=== PATIENT | female | born 1990 | race African-American/Black ===

== ENCOUNTER → 2020-08-14 | Day surgery (SDC) | payer OTHER ==
[~2020-08-14] VITALS: Ht 160 cm; Wt 91.8 kg
[~2020-08-14] MED LIST: BENADRYL25 MG PO; COLESTID1 GM PO; DIFLUCAN150 MG PO; FAMOTIDINE10 MG PO; LEVBID0.375 MG PO; LEXAPRO 10MG TA10 MG PO; NORCO 5-325 TA1 EACH PO; ZYRTEC10 M3 PO
[2020-08-14 08:29] LABS: HCT 43.2 % (37.0-47.0); HGB 14.3 g/dl (12.5-16.0); MCH 29.9 pg (25.0-31.0); MCHC 33.1 g/dL (32.0-36.0); MCV 90.4 fL (78.0-100.0); MPV 9.3 fL (6.0-9.5); RBC 4.78 M/uL (4.20-5.40); RDW 12.6 % (11.5-14.0); WBC 12.2 K/uL (4.0-10.5)
[2020-08-14 08:32] LABS: ALBUMIN 3.9 g/dL (3.4-5.0); BILIRUBIN - TOTAL 0.5 mg/dL (0.2-1.0); BUN/CREAT RATIO (CALC) 7.8 RATIO; CREATININE 0.9 mg/dL (0.51-0.95); GLOBULIN (CALCULATION) 4.7 g/dL; POTASSIUM 4.8 mmol/L (3.5-5.1); TOTAL PROTEIN 8.6 g/dL (6.4-8.2)
== END | disposition home or self-care (01) ==
LOC: FAS 07:33
PROVIDERS: Surgery
DX: K21.00 Gastro-esophageal reflux disease with esophagitis, without bleeding (principal); K29.50 Unspecified chronic gastritis without bleeding; K44.9 Diaphragmatic hernia without obstruction or gangrene; K21.9 Gastro-esophageal reflux disease without esophagitis; K58.9 Irritable bowel syndrome, unspecified; K59.09 Other constipation; F41.8 Other specified anxiety disorders; E66.09 Other obesity due to excess calories; G43.909 Migraine, unspecified, not intractable, without status migrainosus; G44.229 Chronic tension-type headache, not intractable; Z88.1 Allergy status to other antibiotic agents; Z90.49 Acquired absence of other specified parts of digestive tract; Z86.16 Personal history of COVID-19
CPT/HCPCS: 36415; 80053; J1610; J2250; J2704; J7120